=== PATIENT | male | born 1955 | race Caucasian/White ===

== ENCOUNTER → 2023-05-04 | Day surgery (SDC) | payer MEDICARE, OTHER ==
[2023-04-28 07:54] LABS: BASOPHILS # (AUTO) 0.1 (0.0-0.1); BASOPHILS % 0.7 % (0.0-1.0); EOSINOPHILS # (AUTO) 0.2 (0.0-0.4); EOSINOPHILS % 3.1 % (0.0-6.0); HEMATOCRIT 45.3 % (38.2-49.6); HEMOGLOBIN 14.7 g/dL (14.0-18.0); LYMPHOCYTES # (AUTO) 1.6 (1.0-3.2); LYMPHOCYTES % 21.2 % (18.0-39.1); MEAN CORPUSCULAR HEMOGLOBIN 28.9 pg (28-32); MEAN CORPUSCULAR HGB CONC 32.5 g/dL (31-35); MEAN CORPUSCULAR VOLUME 89.2 fL (81-99); MONOCYTES # (AUTO) 0.7 (0.2-0.8); MONOCYTES % 8.8 % (4.4-11.3); NEUTROPHILS # (AUTO) 4.9 (2.1-6.9); NEUTROPHILS % 65.8 % (38.7-80.0); PLATELET COUNT 109 x10e3/uL (140-360); RED BLOOD COUNT 5.08 x10e6/uL (4.3-5.7); RED CELL DISTRIBUTION WIDTH 14.8 % (11.7-14.4)
[~2023-05-04] MED LIST: ALBUTEROL SULFATE HFA 8GM INHALATION AEROSOL INH ONE; ASTELIN; ATENOLOL50 MG PO; ATORVASTATIN CA20 MG PO; BACTROBAN15 G1 TOP; BETAMETHASONE D15 GM TOP; BUTALB-ACETAMI1 EACH PO; CALCIUM500 MG PO; CALTRATE 600600 MG PO; CLARINEX PO; CLOBETASOL1 EA/15 GM TOP; DETROL LA4 MG PO; DICYCLOMINE HCL20 MG PO; DOVONEX60 GM TOP; DOXAZOSIN MESYLA1 MG PO; DYMISTA NASAL S23 GM INH; EPIPEN0.3 MG/0.3; FLOMAX0.4 MG PO; HALOBETASOL PRO15 GM TOP; HYDROCODONE PO; LACTATED RINGER'S 1,000 ML ONE; LASIX20 MG PO; LEVAQUIN500 MG PO; LIDOCAINE HCL 2% LOCAL INJ 5 ML SDV VIAL INJ ONE; LISINOPRIL10 MG PO; MECLIZINE HCL25 MG PO; MONTELUKAST SOD10 MG PO; PANTOPRAZOLE SO40 MG PO; PRILOSEC40 MG PO; PROAIR HFA8.5 GM IH; PROPOFOL IV EMULSION 10 MG/ML 20 ML VIAL ONE; PROTONIX PO; SERTRALINE HCL50 MG PO; TAZORAC30 G2 TOP; TRICOR48 MG PO; VITAMIN E400 UNI2 PO; Z.0.ANTIVERT12.5 MG PO; Z.0.ATENOLOL25 MG PO; Z.0.CALTRATE 600 W1 PO; Z.0.DETROL LA4 MG PO; Z.0.LIPITOR40 MG PO; Z.0.OMEPRAZOLE20 MG PO; Z.0.SERTRALINE HCL50 PO; Z.0.SINGULAIR10 MG PO; Z.2.LOSARTAN-HCTZ1 E PO; ZIAC 5-6.25 MG1 EACH PO
[2023-05-04 08:36] VITALS: TEMP 97.6
[2023-05-04 08:50] VITALS: BP 136/80; PULSE 70; RESP 17; O2SAT 98
== END | disposition home or self-care (01) ==
LOC: OR 06:25
PROVIDERS: ATTEND Internal Medicine Gastroenterology
DX: Z12.11 Encounter for screening for malignant neoplasm of colon (principal); D12.3 Benign neoplasm of transverse colon; D12.8 Benign neoplasm of rectum; K57.30 Diverticulosis of large intestine without perforation or abscess without bleeding; K64.8 Other hemorrhoids; K21.9 Gastro-esophageal reflux disease without esophagitis; I10 Essential (primary) hypertension; J45.909 Unspecified asthma, uncomplicated; F32.A Depression, unspecified; Z88.6 Allergy status to analgesic agent; Z88.0 Allergy status to penicillin; Z88.2 Allergy status to sulfonamides; Z01.810 Encounter for preprocedural cardiovascular examination; Z01.812 Encounter for preprocedural laboratory examination; Z79.899 Other long term (current) drug therapy
CPT/HCPCS: 36415; 45385; 85025; 88305; 93005; J2001; J2704; J7121; 45378